=== PATIENT | male | born 1975 | race American Indian/Alaskan Native ===

== ENCOUNTER 2018-08-27 19:15 | Emergency (ER) | payer OTHER ==
[2018-08-27 19:23] VITALS: BP 144/91; PULSE 78; TEMP 98.3; O2SAT 98
[2018-08-27] MEDS ORDERED: Naproxen 550 mg Tab PO STA (20:05)
[2018-08-27] MEDS ORDERED: Naproxen 550 mg Tab PO ONE (20:15)
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
[2018-08-27 21:55] VITALS: RESP 20
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
== END 2018-08-27 21:55 | disposition home or self-care (01) ==
LOC: C.ER 19:15
DX: S20.212A Contusion of left front wall of thorax, initial encounter (principal); S80.01XA Contusion of right knee, initial encounter; V89.2XXA Person injured in unspecified motor-vehicle accident, traffic, initial encounter